=== PATIENT | female | born 1965 | race Caucasian/White ===

== ENCOUNTER 2016-08-19 12:11 | Day surgery (SDC) | payer OTHER ==
[~2016-08-19] VITALS: Ht 170.2 cm; Wt 63.5 kg
[~2016-08-19 12:11] MED LIST: METH10TA PO; Sodium Chloride LOK Flush 10 mL Syringe IV PRN; fentaNYL-PF 50 mCg/mL 2 mL Inj IVPUSH PRN
[2016-08-19 12:46] VITALS: BP 109/70; PULSE 80; RESP 16; O2SAT 100
[2016-08-19] MEDS: 0.9% Sodium Chloride 1,000 ML IV SCH ×3 (12:46→13:12)
[2016-08-19 13:32] VITALS: BP 109/61; PULSE 78; RESP 14; O2SAT 100
[2016-08-19 13:42] VITALS: BP 97/57; PULSE 74; RESP 14; O2SAT 100
[2016-08-19 13:45] VITALS: BP 109/69; PULSE 73; RESP 16; O2SAT 100
--- NOTE | 2016-08-19 13:51 | ENDO ---
[address] [address] ENDOSCOPY PROCEDURE PATIENT: LEONOR MITTAL : 1965 MR#: [id number] ADMIT: 08/19/2016 JOB ID: [id number] DATE OF SERVICE: 08/19/2016 TYPE OF OPERATION: Colonoscopy with snare polypectomy. PREOPERATIVE DIAGNOSIS(ES): Family history of colon cancer. POSTOPERATIVE DIAGNOSIS(ES): 1. Small internal hemorrhoids. 2. A 5 mm ascending colon polyp, removed by hot snare polypectomy. ANESTHESIA: Fentanyl 125 mcg, Versed 5 mg IV administered. DESCRIPTION OF PROCEDURE: After risks and benefits were explained to the patient, informed consent was obtained. After anesthesia administered, colonoscope was then inserted from the rectum to the cecum. Mucosa carefully examined. Prep of the patient was excellent. After procedure was done, the scope withdrawn and the procedure terminated. FINDINGS: Upon inspection of the anus, no masses, hemorrhoids, ulcers, or fissures that were seen. Throughout the entire examination, there was a 5 mm ascending colon polyp, removed by hot snare polypectomy. The entire colon was quite torturous. No other polyps or masses were seen. Retroflexion showed small internal hemorrhoids. IMPRESSION: 1. Small internal hemorrhoids. 2. Tortuous colon. 3. A 5 mm ascending colon polyp, removed by hot snare polypectomy. RECOMMENDATION: Await pathology results. Repeat colonoscopy in five years, given family history of colon cancer.
--- NOTE | 2016-08-22 12:26 | PATH ---
SURGICAL PATHOLOGY Attending Physician:Toro Man MD CASE STATUS: Signed Out PATIENT NAME: LEONOR MITTAL PID: [id number] : 1965 DATE COLLECTED:08/19/2016 20:09 SPECIMEN: Colon, Biopsy CLINICAL HISTORY: 1). ASCENDING COLON POLYP FINAL DIAGNOSIS: 1.ASCENDING COLON POLYP: TUBULAR ADENOMA. ICD10 CODE D12.2 GROSS DESCRIPTION: The specimen is received in one formalin filled container labeled with the patient's name, sublabeled "ascending colon polyp" and consists of a 0.3 x 0.2 x 0.2 CM portion of tissue which is entirely submitted in one cassette. 08/19/2016 DAC MICRO DESCRIPTION: See diagnosis. ICD-9 CODES: CPT CODES: 1: 30599 Electronically Signed Out Baltazar Florentino MD [facility] [address], [place] [address] Technical component performed at [facility], [address] [place] [address] Ave[address], [place], [address]
== END 2016-08-19 23:59 | disposition home or self-care (01) ==
LOC: END 12:11
PROVIDERS: ATTEND Internal Medicine Gastroenterology
DX: Z12.11 Encounter for screening for malignant neoplasm of colon (principal); D12.2 Benign neoplasm of ascending colon; K64.8 Other hemorrhoids; K63.89 Other specified diseases of intestine; Z80.0 Family history of malignant neoplasm of digestive organs
CPT/HCPCS: 45385; J2250; J7030